=== PATIENT | male | born 1980 | race Caucasian/White ===

== ENCOUNTER 2016-08-22 12:10 | Emergency (ER) | payer BC, OTHER ==
[~2016-08-22] VITALS: Ht 180.3 cm; Wt 83.6 kg
[2016-08-22] MEDS ORDERED: KETOROLAC 30 MG/ML VIAL (J1885) IV ONE (13:45)
[2016-08-22] MEDS ORDERED: CLINDAMYCIN 900 MG in APPROPRIATE DILUENT 1 EA IV ONE (13:45)
--- NOTE | 2016-08-22 15:05 | REP ---
HISTORY: Edema of the foot. TECHNIQUE: Multiple ultrasonographic images of the deep venous structures of the right thigh were obtained from the common femoral vein to the popliteal vein along with Doppler interrogation and color flow Doppler images. FINDINGS: There is no abnormal echogenic material seen within any of the visualized deep venous structures that would suggest acute thrombosis. Coaptation is unremarkable throughout. Doppler interrogation shows an expected response to respiratory variability and augmentation. The color flow images show what appears to be a normal vascular pattern throughout. IMPRESSION: There is no ultrasonographic evidence of deep venous thrombosis involving any of the visualized deep venous structures of the right thigh, as described above. Incidental note is made of a right groin lymph node. This node measures approximately 9 mm in its short axis dimension. This lymph node retains its reniform shape and fatty hilum, but needs to be correlated clinically since this examination cannot rule out groin adenopathy. Signed by Bharathi Valiente DO 08/22/2016 03:08 P
--- NOTE | 2016-08-22 15:09 | REP ---
HISTORY: Foot edema with erythema. Ultrasonographic imaging of the soft tissues of the right 4th digit of the foot anteriorly was performed and shows no evidence of an abnormal solid or cystic mass. IMPRESSION: Negative soft tissue ultrasound does not rule out a soft tissue infection. This exam needs to be correlated clinically. Signed by Bharathi Valiente DO 08/22/2016 03:12 P
[2016-08-22 15:15] LABS: BASO # 0.1 K/mm3 (0.0-0.2); BASO % 0.9 % (0.0-1.0); EOS # 0.6 K/mm3 (0.0-0.50); EOS % 6.7 % (0.0-3.0); LARGE UNSTAINED CELL # 0.1 K/mm3 (0.0-0.4); LYMPH # 1.5 K/mm3 (1.5-4.5); LYMPH % 15.9 % (24.0-44.0); MEAN CORPUSCULAR HEMOGLOBIN 32.4 pg (27.0-33.0); MEAN CORPUSCULAR HGB CONC 35.6 g/dl (32.0-36.5); MONO # 0.6 K/mm3 (0.0-0.8); MONO % 6.2 % (0.0-5.0); NEUTROPHILS # 6.2 K/mm3 (1.8-7.7); NEUTROPHILS % 69.4 % (36.0-66.0); PLATELET COUNT, AUTOMATED 191 k/mm3 (150-450)
[2016-08-22 15:38] LABS: ALBUMIN 4.3 GM/DL (3.2-5.2); ALBUMIN/GLOBULIN RATIO 1.54 (1.00-1.93); ALKALINE PHOSPHATASE 69 U/L (45-117); ALT/SGPT 30 U/L (12-78); ANION GAP 5 MEQ/L (8-16); AST/SGOT 25 U/L (15-37); BILIRUBIN,TOTAL 0.7 MG/DL (0.2-1.0); BLOOD UREA NITROGEN 16 MG/DL (7-18); CALCIUM LEVEL 9.2 MG/DL (8.5-10.1); CARBON DIOXIDE LEVEL 30 MEQ/L (21-32); CHLORIDE LEVEL 103 MEQ/L (98-107); CREATININE FOR GFR 0.99 MG/DL (0.70-1.30); GLOMERULAR FILTRATION RATE > 60.0 (>60); GLUCOSE, FASTING 81 MG/DL (70-105); POTASSIUM SERUM 4.2 MEQ/L (3.5-5.1); SODIUM LEVEL 138 MEQ/L (136-145); TOTAL PROTEIN 7.1 GM/DL (6.4-8.2)
[2016-08-22] MEDS ORDERED: BACT800T5 PO (16:12)
[2016-08-22] MEDS ORDERED: IBUP80TA PO (16:12)
[2016-08-22] MEDS ORDERED: BACTRIM 160MG/800MG DS TAB PO ONE (16:15)
[2016-08-22 16:39] VITALS: BP 120/69
[2016-08-23] MEDS ORDERED: BACT800T5 PO (19:03)
[2016-08-23] MEDS ORDERED: IBUP80TA PO (19:03)
[2016-08-23] MEDS ORDERED: CLEO300C2 PO (20:10)
== END 2016-08-22 16:40 | disposition home or self-care (01) ==
LOC: M ED 12:10
DX: L08.9 Local infection of the skin and subcutaneous tissue, unspecified (principal)
CPT/HCPCS: 76882; 80053; 85025; 87040; 87070; 87077; 87186; 93971; 96374; 96375; 99283; J1885

== ENCOUNTER 2016-08-23 18:06 | Emergency (ER) | payer BC, OTHER ==
[~2016-08-23] VITALS: Ht 180.3 cm; Wt 83.0 kg
[~2016-08-23 18:06] MED LIST: BACT800T5 PO; IBUP80TA PO
[2016-08-23] MEDS ORDERED: KETOROLAC 30 MG/ML VIAL (J1885) IV ONE (18:45)
[2016-08-23] MEDS ORDERED: CLINDAMYCIN 900 MG in APPROPRIATE DILUENT 1 EA IV ONE (18:45)
[2016-08-23] MEDS ORDERED: BACT800T5 PO (19:03)
[2016-08-23] MEDS ORDERED: IBUP80TA PO (19:03)
[2016-08-23 19:10] LABS: BASO # 0.3 K/mm3 (0.0-0.2); EOS # 0.8 K/mm3 (0.0-0.50); EOS % 9.1 % (0.0-3.0); LARGE UNSTAINED CELL # 0.1 K/mm3 (0.0-0.4); LARGE UNSTAINED CELL % 1.4 % (0.0-4.0); LYMPH # 1.9 K/mm3 (1.5-4.5); LYMPH % 20.5 % (24.0-44.0); MEAN CORPUSCULAR HEMOGLOBIN 32.1 pg (27.0-33.0); MEAN CORPUSCULAR VOLUME 91.8 fl (80.0-96.0); MONO # 0.6 K/mm3 (0.0-0.8); MONO % 6.5 % (0.0-5.0); NEUTROPHILS # 5.1 K/mm3 (1.8-7.7); NEUTROPHILS % 59.5 % (36.0-66.0); PLATELET COUNT, AUTOMATED 205 k/mm3 (150-450); RED CELL DISTRIBUTION WIDTH 12.1 % (11.5-14.5); WHITE BLOOD COUNT 8.5 K/mm3 (4.0-10.0)
[2016-08-23 19:38] LABS: ERYTHROCYTE SEDIMENTATION RATE 2 mm/hr (0-15)
[2016-08-23 19:43] LABS: ANION GAP 4 MEQ/L (8-16); BLOOD UREA NITROGEN 20 MG/DL (7-18); CALCIUM LEVEL 9.2 MG/DL (8.5-10.1); CARBON DIOXIDE LEVEL 29 MEQ/L (21-32); CHLORIDE LEVEL 105 MEQ/L (98-107); CREATININE FOR GFR 1.15 MG/DL (0.70-1.30); GLOMERULAR FILTRATION RATE > 60.0 (>60); GLUCOSE, FASTING 85 MG/DL (70-105); POTASSIUM SERUM 3.9 MEQ/L (3.5-5.1); SODIUM LEVEL 138 MEQ/L (136-145)
[2016-08-23] MEDS ORDERED: CLEO300C2 PO (20:10)
[2016-08-23 20:30] VITALS: BP 120/59
== END 2016-08-23 20:42 | disposition home or self-care (01) ==
LOC: M ED 18:06
DX: L03.115 Cellulitis of right lower limb (principal); Z79.2 Long term (current) use of antibiotics
CPT/HCPCS: 80048; 85025; 85652; 86140; 96374; 96375; 99283; J1885

== ENCOUNTER 2016-08-25 07:30 | Emergency (ER) | payer BC, OTHER ==
[~2016-08-25] VITALS: Ht 180.3 cm; Wt 80.0 kg
[~2016-08-25 07:30] MED LIST changes: +CLEO300C2 PO
[2016-08-25 07:35] VITALS: BP 148/66
[2016-08-25] MEDS ORDERED: KETO2CR EXT ×2 (07:55→08:16)
== END 2016-08-25 08:19 | disposition home or self-care (01) ==
LOC: M ED 07:30
DX: L03.115 Cellulitis of right lower limb (principal); B35.3 Tinea pedis; Z79.2 Long term (current) use of antibiotics